=== PATIENT | male | born 1985 | race Two or more races ===

== ENCOUNTER 2019-07-18 20:14 | Emergency (ER) | payer OTHER ==
[~2019-07-18] VITALS: Ht 170.2 cm; Wt 84.4 kg
[2019-07-18 20:26] VITALS: Ht 170.2 cm; Wt 84.4 kg
[2019-07-18 23:45] VITALS: BP 121/70
== END 2019-07-18 23:45 | disposition home or self-care (01) ==
LOC: ED 20:14
DX: R10.814 Left lower quadrant abdominal tenderness (principal)
CPT/HCPCS: J1885

== ENCOUNTER 2019-07-19 22:26 | Inpatient (IN) | payer OTHER ==
[~2019-07-19] VITALS: Ht 170.2 cm; Wt 83.1 kg
[2019-07-19 22:50] VITALS: Ht 170.2 cm; Wt 83.1 kg
[2019-07-20 01:05] LABS: BASOPHIL % 0.2 % (0-2)
[2019-07-20 01:11] LABS: PLATELET COUNT 406 x10^3mcL (130-400); RED CELL DISTRIBUTION WIDTH 15.1 % (11.5-14.5)
[2019-07-20 01:57] LABS: CARBON DIOXIDE 24.8 mmol/L (21-32); CHLORIDE SERUM 101 mmol/L (98-107); CREATININE SERUM 1.1 mg/dL (0.7-1.3); GFR1 > 60 mL/min; GLUCOSE SERUM 108 mg/dL (74-106); POTASSIUM SERUM 4.3 mmol/L (3.5-5.1); SODIUM SERUM 136 mmol/L (136-145)
[2019-07-20 02:01] LABS: ALBUMIN 3.1 g/dL (3.4-5.0); ALKALINE PHOSPHATASE 74 U/L (46-116); ALT/SGPT 100 U/L (16-63); AST/SGOT 57 U/L (15-37); BILIRUBIN TOTAL 0.6 mg/dL (0.20-1.00); TOTAL PROTEIN, SERUM 8.6 g/dL (6.4-8.2)
[2019-07-20 09:18] VITALS: BP 135/84
[2019-07-20 12:20] VITALS: BP 139/81
[2019-07-20 17:14] VITALS: BP 121/77
[2019-07-20 21:37] VITALS: BP 122/76
[2019-07-21 05:33] VITALS: BP 109/64
[2019-07-21 06:23] LABS: PLATELET COUNT 385 x10^3mcL (130-400)
[2019-07-21 06:55] LABS: ALKALINE PHOSPHATASE 91 U/L (46-116); ALT/SGPT 80 U/L (16-63); AST/SGOT 42 U/L (15-37); BILIRUBIN TOTAL 1.2 mg/dL (0.20-1.00); CALCIUM 8.5 mg/dL (8.5-10.1); CARBON DIOXIDE 27.5 mmol/L (21-32); CHLORIDE SERUM 102 mmol/L (98-107); CREATININE SERUM 1.2 mg/dL (0.7-1.3); GFR1 > 60 mL/min; GLUCOSE SERUM 108 mg/dL (74-106); POTASSIUM SERUM 4.3 mmol/L (3.5-5.1); SODIUM SERUM 137 mmol/L (136-145); TOTAL PROTEIN, SERUM 7.6 g/dL (6.4-8.2)
[2019-07-21 07:00] LABS: ALBUMIN 2.5 g/dL (3.4-5.0)
[2019-07-21 08:03] LABS: RED CELL DISTRIBUTION WIDTH 14.8 % (11.5-14.5)
[2019-07-21 08:14] VITALS: BP 115/68
[2019-07-21 08:28] LABS: BAND NEUTROPHIL 7 % (0-10); BASOPHIL 0 % (0-2); MONOCYTE 9 % (0-7); SEGMENTED NEUTROPHILS 82 % (37-75)
[2019-07-21 08:29] LABS: PLATELET MORPHOLOGY PLATELETS INCREASED; rbc morphology (normal/abnorm) ABNORMAL (NORMAL)
[2019-07-21 11:30] VITALS: BP 117/58
[2019-07-21 15:24] VITALS: BP 110/62
[2019-07-21 20:25] VITALS: BP 118/76
[2019-07-22 06:08] VITALS: BP 108/59
[2019-07-22 08:26] VITALS: BP 110/71
[2019-07-22 10:03] LABS: CALCIUM 8.6 mg/dL (8.5-10.1); CARBON DIOXIDE 26.8 mmol/L (21-32); CHLORIDE SERUM 101 mmol/L (98-107); CREATININE SERUM 1.1 mg/dL (0.7-1.3); GFR1 > 60 mL/min; GLUCOSE SERUM 113 mg/dL (74-106); POTASSIUM SERUM 4.1 mmol/L (3.5-5.1); SODIUM SERUM 138 mmol/L (136-145)
[2019-07-22 11:59] LABS: MONOCYTE 10 % (0-7); SEGMENTED NEUTROPHILS 79 % (37-75)
[2019-07-22 12:00] LABS: BAND NEUTROPHIL 1 % (0-10); BASOPHIL 0 % (0-2); PLATELET MORPHOLOGY PLATELETS INCREASED
[2019-07-22 12:01] LABS: rbc morphology (normal/abnorm) ABNORMAL (NORMAL)
[2019-07-22 12:42] VITALS: BP 107/65
[2019-07-22 14:46] LABS: PLATELET COUNT 403 x10^3mcL (130-400)
[2019-07-22 17:13] VITALS: BP 110/65
[2019-07-22 20:20] VITALS: BP 117/72
[2019-07-23 04:30] VITALS: BP 99/58
[2019-07-23 06:30] LABS: BASOPHIL % 0.6 % (0-2)
[2019-07-23 07:07] LABS: PLATELET COUNT 416 x10^3mcL (130-400); RED CELL DISTRIBUTION WIDTH 15.4 % (11.5-14.5)
[2019-07-23 07:30] LABS: ALKALINE PHOSPHATASE 124 U/L (46-116); ALT/SGPT 102 U/L (16-63); AST/SGOT 45 U/L (15-37); CALCIUM 8.7 mg/dL (8.5-10.1); CARBON DIOXIDE 28.7 mmol/L (21-32); CHLORIDE SERUM 104 mmol/L (98-107); CREATININE SERUM 1.1 mg/dL (0.7-1.3); GFR1 > 60 mL/min; GLUCOSE SERUM 107 mg/dL (74-106); MAGNESIUM 2.4 mg/dL (1.8-2.4); POTASSIUM SERUM 4.7 mmol/L (3.5-5.1); SODIUM SERUM 138 mmol/L (136-145); TOTAL PROTEIN, SERUM 7.5 g/dL (6.4-8.2)
[2019-07-23 07:36] LABS: ALBUMIN 2.3 g/dL (3.4-5.0)
[2019-07-23 08:25] VITALS: BP 100/62
[2019-07-23 12:26] VITALS: BP 108/62
[2019-07-23 16:28] VITALS: BP 99/59
[2019-07-23 20:40] VITALS: BP 118/76
[2019-07-24 05:33] VITALS: BP 105/66
[2019-07-24 07:19] LABS: BASOPHIL % 0.5 % (0-2)
[2019-07-24 07:25] LABS: PLATELET COUNT 493 x10^3mcL (130-400); RED CELL DISTRIBUTION WIDTH 14.8 % (11.5-14.5)
[2019-07-24 07:46] LABS: ALKALINE PHOSPHATASE 82 U/L (46-116); ALT/SGPT 96 U/L (16-63); AST/SGOT 43 U/L (15-37); BILIRUBIN TOTAL 0.5 mg/dL (0.20-1.00); CALCIUM 8.4 mg/dL (8.5-10.1); CARBON DIOXIDE 26.3 mmol/L (21-32); CHLORIDE SERUM 107 mmol/L (98-107); GFR1 > 60 mL/min; GLUCOSE SERUM 114 mg/dL (74-106); MAGNESIUM 2.2 mg/dL (1.8-2.4); POTASSIUM SERUM 4.4 mmol/L (3.5-5.1); SODIUM SERUM 142 mmol/L (136-145); TOTAL PROTEIN, SERUM 7.2 g/dL (6.4-8.2)
[2019-07-24 07:52] LABS: ALBUMIN 2.4 g/dL (3.4-5.0)
[2019-07-24 07:58] VITALS: BP 103/67
[2019-07-24] MEDS ORDERED: CIPRO500 MG PO (10:10)
[2019-07-24] MEDS ORDERED: FLAGYL500 MG PO (10:11)
[2019-07-24 10:37] VITALS: BP 103/67
[2019-07-24 11:05] VITALS: BP 103/67
== END 2019-07-24 12:07 | disposition home or self-care (01) | DRG 244 ==
LOC: ED 22:26 → MU 07-20 06:30
PROVIDERS: Emergency Medicine; Internal Medicine Pulmonary Disease; Surgery; ADMIT Internal Medicine Pulmonary Disease
DX: K57.20 Diverticulitis of large intestine with perforation and abscess without bleeding (principal); K59.00 Constipation, unspecified
CPT/HCPCS: 87046; 87046-59; G0378; J2270; J2405; J2543; J3010; J3490; J7030; J7042; Q9966; Q9967